=== PATIENT | female | born 1975 | race African-American/Black ===

== ENCOUNTER 2017-09-18 01:38 | Inpatient (IN) | payer MEDICAID, OTHER ==
[2017-09-18] VITALS (44 sets, daily range): BP systolic 114–167; BP diastolic 60–104; PULSE 61–92; RESP 16–20; TEMP 97.7–98.3; O2SAT 93–98
[~2017-09-18] VITALS: Ht 167.6 cm; Wt 96.0 kg
[~2017-09-18 01:38] MED LIST: DIOV160T3 PO; HYDR-3533 PO; KLOR20TA6 PO; NAPR500 PO; TRAZ50TA4 PO
[2017-09-18] MEDS ORDERED: NIFEdipine 10 MG CAP ONE (02:22)
[2017-09-18] MEDS ORDERED: LABETALOL HCL 100 MG/20 ML VIAL ONE (02:36)
[2017-09-18] MEDS ORDERED: LABETALOL HCL 200 MG TAB PO ONE (02:45)
[2017-09-18] MEDS ORDERED: LACTATED RINGER'S 1000 ML INJ 1,000 ML IV SCH (03:05)
[2017-09-18] MEDS ORDERED: CALCIUM GLUCONATE 10% 1 GM/10 ML VIAL IV PUSH PRN (03:15)
[2017-09-18] MEDS ORDERED: SODIUM CHLORIDE 0.9% FLUSH 10 ML FLUSH IV FLUSH PRN ×2 (03:15→07:45)
[2017-09-18 03:26] LABS: HEMATOCRIT 28.5 % (35.0-46.0); HEMOGLOBIN 8.5 GM/DL (11.6-15.3); MEAN CELL VOLUME 59.7 FL (80.0-100.0); MEAN CORPUSCULAR HEMOGLOBIN 17.7 PG (27.0-34.0); MEAN PLATELET VOLUME 8.6 FL (7.0-11.0); PLATELET COUNT 414 TH/MM3 (150-450); RED BLOOD COUNT 4.78 MIL/MM3 (4.00-5.30); WHITE BLOOD COUNT 16.4 TH/MM3 (4.0-11.0)
--- NOTE | 2017-09-18 03:29 | HHI.HP ---
History & Physical H&P HPI HPI Chief Complaint blurry vision. Date Seen: Sep 18, 2017 Time Seen: 03:16 Travel History International Travel<30 Days: No Contact w/Intl Traveler<30Days: No Known Affected Area: No History of Present Illness HPI pt. is a 42 y/o @ 36 1/7 weeks present w/ c/o blurry vision and ? increased bp. pt. states earlier in pm was watching tv and noticed blurry vision. pt. states has increased bp outside of and believed her bp to be increased. when she arrive in l&d, bp noted to be 178 systolic w/ increased diastolic. pt. given 3 doses of 20mg iv labetalol w/ improvement in vision. pt. denies barcenas/cp/sob/n/v/voiding difficulties. Weeks Gestation: 36 Para: 8 : 7 History (Limited) History Past Medical History Narrative Medical pt. w/ h/o htn prior to Obstetric History Obstetric History , s/p x 7, cd x 1 for 2nd twin last . pt w/ h/o twin and delivery x 2 Past Surgical History Narrative Surgical cd x 1 Family History Family History: Negative Social History Alcohol Use: No Tobacco Use: No Substance Abuse: No Allergies-Medications Allergies-Medications (Allergen,Severity, Reaction): Coded Allergies: No Known Allergies (Verified , 12/14/14) Home Meds Active Scripts Hydrocodone/Acetaminophen 5 mg/325 mg (Lortab 5 mg/325 mg) 1 Tab, 1 TAB PO Q4H Y for PAIN, #10 TAB Prov:Gian Shha DO 09/26/14 Naproxen (Naprosyn) 500 Mg Tab, 500 MG PO BID, #20 TAB Prov:Gian Shah DO 09/26/14 Potassium Chloride Microencaps (K-Dur) 20 Meq Tabcr, 20 MEQ PO DAILY for 7 Days , TABCR Prov:Yanira Harmon MD 04/10/13 Reported Medications Valsartan-Hydrochlorothiazide (Diovan Hct 160/12.5) Tab, 1 TAB PO DAILY, TAB 12/14/14 Trazodone Hcl (Trazodone Hcl) 50 Mg Tab, 50 MG PO BID, TAB 09/26/14 ROS Review of Systems Except as stated in HPI: all other systems reviewed are Neg Physical Exam Physical Exam Narrative GENERAL: Well-nourished, well-developed patient. SKIN: Warm and dry. HEAD: Normocephalic and atraumatic. EYES: No scleral icterus. No injection or drainage. ENT: No nasal drainage noted. Mucous membranes pink. Airway patent. NECK: Supple, trachea midline. No JVD. CARDIOVASCULAR: Regular rate and rhythm without murmurs, gallops, or rubs. RESPIRATORY: Breath sounds equal bilaterally. No accessory muscle use. ABDOMEN/GI: Abdomen soft, non-tender, bowel sounds present, no rebound, no guarding Gravid Uterine Contractions: [-] FHT's: Category: 2 Reactive: + Variability: mod EXTREMITIES: No cyanosis or edema. BACK: Nontender without obvious deformity. No CVA tenderness. NEUROLOGICAL: Awake and alert. Motor and sensory grossly within normal limits. Five out of 5 muscle strength in all muscle groups. Normal speech. Data Data Data Orders Orders Nifedipine (Procardia) (09/18/17 02:22) Labetalol (Trandate) (09/18/17 02:45) Labetalol Inj (Trandate Inj) (09/18/17 02:36) Ob (2e) Additional Admit Info (09/18/17 02:40) Admit To Inpatient (09/18/17 ) Code Status (09/18/17 03:05) Vital Signs (Adult) Q5MX4,Q15MX4,Q30MX2,Q1H (09/18/17 03:05) Activity Bed Rest (09/18/17 03:05) Intake + Output Q1H (09/18/17 03:05) Notify DrMaryana Parameters (09/18/17 03:05) Heart CONTINUOUS (09/18/17 03:05) Urinary Catheter Management MOISES.Q8H (09/18/17 03:05) ^ Check Deep Tendon Reflexes Q1H (09/18/17 03:05) Diet Npo (09/18/17 Breakfast) Lactated Ringer's 1000 Ml Inj (Lr 1000 M (09/18/17 03:05) Sodium Chloride 0.9% Flush (Ns Flush) (09/18/17 03:15) Sodium Chloride 0.9% Flush (Ns Flush) (09/18/17 09:00) Calcium Gluconate Inj (Calcium Gluconate (09/18/17 03:15) Cbc No Diff, Includes Plts (09/18/17 03:05) Comprehensive Metabolic Panel (09/18/17 03:05) Uric Acid (09/18/17 03:05) Urinalysis - C+S If Indicated (09/18/17 03:05) Inpatient Certification (09/18/17 ) Specimen To Be Collected PRN (09/18/17 03:05) MDM MDM Medical Record Reviewed: Yes Plan pt. w/ hypertensive emergency. pt. htn improved w/ iv medication. pt. maybe preeclamptic and await lab results. pt. to be admitted. fht guarded and will continue to monitor. Diagnosis Diagnosis: Primary Impression: Hypertensive emergency Additional Impressions: Chronic hypertension during , antepartum 36 weeks gestation of Ariel Saucedo Jr., MD Sep 18, 2017 03:29
[2017-09-18 03:40] LABS: MEAN CORPUSCULAR HGB CONC 29.7 % (32.0-36.0)
[2017-09-18] MEDS ORDERED: ACETAMINOPHEN 1000 MG/100 ML 100 ML IV ONE (03:49)
[2017-09-18] MEDS ORDERED: ceFAZolin INJ 1,000 MG VIAL ONE (03:49)
[2017-09-18] MEDS ORDERED: MORPHINE SULFATE PF 5 MG/10 ML VIAL ONE (03:49)
[2017-09-18 04:20] LABS: ALBUMIN 2.4 GM/DL (3.4-5.0); ALT (GPT) 18 U/L (10-53); AST (GOT) 37 U/L (15-37); BICARBONATE 21.6 MEQ/L (21.0-32.0); BLOOD UREA NITROGEN 10 MG/DL (7-18); CHLORIDE 103 MEQ/L (98-107); CREATININE 0.89 MG/DL (0.50-1.00); GLOMERULAR FILTRATION RATE 85 ML/MIN (>89); GLUCOSE,RANDOM 95 MG/DL (74-106); SODIUM (NA) 137 MEQ/L (136-145)
[2017-09-18 04:24] LABS: ALKALINE PHOSPHATASE 243 U/L (45-117); TOTAL BILIRUBIN ADULT 0.4 MG/DL (0.2-1.0); TOTAL PROTEIN 7.9 GM/DL (6.4-8.2)
[2017-09-18 04:33] LABS: BILIRUBIN, URINE NEG (NEG); BLOOD, URINE TRACE (NEG); GLUCOSE,URINE NEG (NEG); KETONE, URINE NEG (NEG); MUCUS URINE FEW /lpf (OCC); NITRITE,URINE NEG (NEG); SQUAMOUS EPITHELIAL CELL URINE 3 /hpf (0-5); URINE COLOR YELLOW (YELLW/STRAW); URINE LEUKOCYTE ESTERASE SMALL (NEG)
[2017-09-18] MEDS ORDERED: MAGNESIUM SULFATE 40 GM PREMIX 1,000 ML ONE (05:02)
--- NOTE | 2017-09-18 05:05 | PD.OB.DELI ---
Procedure Note Section Procedure Pre Op Diagnosis: (1) Non-reassuring electronic monitoring tracing (2) Hypertensive emergency (3) 36 weeks gestation of (4) Chronic hypertension during , antepartum Post Op Diagnosis: (1) Hypertensive emergency (2) 36 weeks gestation of (3) Chronic hypertension during , antepartum (4) Non-reassuring electronic monitoring tracing Performed by Ariel Saucedo Procedure: Repeat Low Transverse Sec Indication for delivery: Nonreassuring heart tracing Previous condition: None Informed consent obtained: For procedure Confirmed correct: Patient, Time-out taken Anesthesia: Spinal Medication prior to procedure: Other Monitoring during procedure: Blood pressure monitoring, monitoring and evaluation advisor, Pulse oximetry Urinary catheter: Inserted using sterile technique Sterile preparation: With 2% chlorexidine (Hibiclens) Position: Supine with wedge to left side Operative Features Skin Incision: Pfannenstiel Uterine Incision: Low transverse w/knife / blunt ext Membranes Ruptured: Artificially Presentation: Breech Delivery date: Sep 18, 2017 Delivery time: 03:57 Delivery of infant: Uneventful Infant: Male One Minute : 7 Five Minute : 9 Weight: 2430 Status of infant: Viable Placenta delivered: Intact Medications: Antibiotics, Other Estimated blood loss: 700cc Procedure tolerated: Well Maternal Condition: Guarded Condition: Stable Procedure in detail see dictation Ariel Saucedo Jr., MD Sep 18, 2017 05:05
[2017-09-18] MEDS ORDERED: OXYTOCIN 30 UNITS-500ML PREMIX 500 ML ONE (05:59)
--- NOTE | 2017-09-18 06:30 | MB ---
cc: Ariel Bose MD DATE: 09/18/2017 PREOPERATIVE DIAGNOSIS: Intrauterine at 36 weeks, hypertensive emergency, chronic hypertension with superimposed preeclampsia and nonreassuring heart rate tracing. POSTOPERATIVE DIAGNOSIS: Intrauterine at 36 weeks, hypertensive emergency, chronic hypertension with superimposed preeclampsia and nonreassuring heart rate tracing. PROCEDURE: Low transverse delivery via Pfannenstiel skin incision. SURGEON: Ariel Saucedo MD. SCARFER OPERATOR: Staff. ESTIMATED BLOOD LOSS: 700 mL. ANESTHESIA: Spinal anesthesia with Duramorph. URINE OUTPUT: Clear urine throughout the procedure. COMPLICATIONS: None. INDICATIONS: This is a 42-year-old now G7, P9-0-0-9 who presented to the labor and delivery at 36 and 1/7 weeks at [facility]. The patient stated she had blurry vision and upon examination was noted to have hypertensive emergency. The patient was given 3 doses of labetalol and at that time, baby was being monitored. On the monitor strip, the patient was noted to have a category 3 tracing. Decision was made for emergent . FINDINGS: Approximately 38-39 week sized uterus with multiple large leiomyomas. Viable male infant in breech presentation with scores of 7 at 1 minute and 9 at 5 minutes. Weight was 2490 grams. Normal tubes and ovaries bilaterally. Scarring of the bladder to the anterior uterine fundus. PROCEDURE: The patient was taken to the operating room with IV fluids running. She was identified as Fabby [place]. Spinal anesthesia with Duramorph was applied and found to be adequate. She was prepped and draped in the dorsal supine position with a leftward tilt. A Pfannenstiel skin incision was performed carried down to the underlying layer of fascia with the Bovie. The fascia was incised in the midline and extended sharply. Sera clamps were used to the grasp superior aspect of the fascial incision and the underlying rectus muscles were dissected sharply. The parietal peritoneum was identified and entered bluntly. This incision was extended superiorly and inferiorly with good visualization of the bladder. The bladder blade was inserted. Adhesions of the bladder were reduced using the Metzenbaum scissors. The scalpel was used to perform a transverse incision on the uterus and this was extended bluntly. Artificial rupture of membranes was performed. The infant was noted to be in breech presentation. The feet were delivered and the infant was delivered to the shoulders and a Rxgjlpcnu-[id number]-Hzwp maneuver was performed and the infant was delivered without difficulty or trauma. The cord was doubly clamped and cut. Cord bloods were obtained. The placenta was then delivered. The uterus was then exteriorized and cleared of all clots and debris. The uterine incision was closed with #1 Vicryl in a running fashion. A second #1 Vicryl was used to perform an imbricating layer. Several areas of bleeding were noted and these were made hemostatic with multiple [id number]-[id number] sutures. The uterus was then returned to the abdominal cavity and the uterine incision again was found to be hemostatic. There was an attempt to reapproximate the parietal peritoneum, but the peritoneum was noted to be shredding. The rectus muscle on the patient's left side was noted to have a laceration. This was made hemostatic with 0 Vicryl in a [id number] fashion. Multiple veins were noted to be bleeding under the anterior fascia. These were made hemostatic with the Bovie and tqcfcw-[id number] sutures. The subfascial tissues were then noted to be hemostatic. A 0 PDS suture was then used in a running fashion to close the rectus fascia. Subcuticular tissues were noted to be hemostatic. Skin was closed with laurie. Sponge, lap and needle counts were correct x 2. The patient received 2 grams of Ancef prior to the procedure and was transferred to PACU in stable condition. MD NALINI Faust Jr/GERSON , 05:12 AM , 06:29 AM
[2017-09-18] MEDS ORDERED: oxyCODONE/ACETAMINOPHEN 5 MG/325 MG TAB PO PRN (07:45)
[2017-09-18] MEDS ORDERED: LABETALOL HCL 100 MG/20 ML VIAL IV PUSH PRN (07:45)
[2017-09-18] MEDS ORDERED: ONDANSETRON HCL 4 MG/2 ML VIAL IV PUSH PRN (07:45)
[2017-09-18] MEDS ORDERED: KETOROLAC TROMETHAMINE 60 MG/2 ML (IM) VIAL IM PRN (07:45)
[2017-09-18] MEDS ORDERED: OXYTOCIN 30 UNITS-500ML PREMIX 500 ML IV ONE (07:45)
[2017-09-18] MEDS ORDERED: CEFAZOLIN INJ 2,000 MG in SODIUM CHLORIDE 0.9% INJ 100 ML IV SCH (07:45)
[2017-09-18] MEDS: MAGNESIUM SULFATE 40 GM PREMIX 1,000 ML IV SCH (07:55)
[2017-09-18 08:49] LABS: HEMATOCRIT 26.1 % (35.0-46.0); HEMOGLOBIN 7.8 GM/DL (11.6-15.3); MEAN CELL VOLUME 59.8 FL (80.0-100.0); MEAN CORPUSCULAR HEMOGLOBIN 17.9 PG (27.0-34.0); MEAN PLATELET VOLUME 8.4 FL (7.0-11.0); PLATELET COUNT 351 TH/MM3 (150-450); RED BLOOD COUNT 4.37 MIL/MM3 (4.00-5.30); RED CELL DISTRIBUTION WIDTH 20.2 % (11.6-17.2); WHITE BLOOD COUNT 19.4 TH/MM3 (4.0-11.0)
[2017-09-18 08:52] LABS: MEAN CORPUSCULAR HGB CONC 29.9 % (32.0-36.0)
[2017-09-18] MEDS: SODIUM CHLORIDE 0.9% FLUSH 10 ML FLUSH IV FLUSH SCH (09:00)
[2017-09-18] MEDS ORDERED: SODIUM CHLORIDE 0.9% FLUSH 10 ML FLUSH IV FLUSH SCH (09:00)
[2017-09-18 09:12] LABS: ALT (GPT) 16 U/L (10-53); AST (GOT) 33 U/L (15-37); BICARBONATE 20.6 MEQ/L (21.0-32.0); BLOOD UREA NITROGEN 11 MG/DL (7-18); CALCIUM 8.3 MG/DL (8.5-10.1); CHLORIDE 106 MEQ/L (98-107); CREATININE 0.87 MG/DL (0.50-1.00); GLOMERULAR FILTRATION RATE 87 ML/MIN (>89); GLUCOSE,RANDOM 107 MG/DL (74-106); SODIUM (NA) 137 MEQ/L (136-145)
[2017-09-18 09:15] LABS: ALKALINE PHOSPHATASE 201 U/L (45-117); TOTAL BILIRUBIN ADULT 0.3 MG/DL (0.2-1.0); TOTAL PROTEIN 6.7 GM/DL (6.4-8.2)
--- NOTE | 2017-09-18 11:09 | HHI.OB ---
Subjective Post Operative Day: 0 Remarks Postoperative day # 0 s/p emergency CS due to indication, complicated by severe PreE (superimposed on chronic HTN). AF overnight. BPs still elevated to 160s/90s-100s post-operatively but pt is asymptomatic. Incision not draining. Lochia stable. Denies dysuria. No breast tenderness. She is feeding the baby via breast. Appetite good. No nausea or vomiting. With Dale, continuing on Magnesium until early intervention school psychologist tomorrow. Denies calf pain or shortness of breath. Otherwise, she is doing well this morning and has no other concerns. Objective Vitals/I&O Vital Signs Date Time Temp Pulse Resp B/P (MAP) Pulse Ox O2 Delivery O2 Flow Rate FiO2 09/18/17 10:00 67 146/89 (108) 09/18/17 08:50 67 147/87 (107) 09/18/17 08:41 68 144/87 (106) 09/18/17 08:31 70 156/96 (116) 09/18/17 08:00 75 18 161/93 (115) 09/18/17 08:00 97.8 09/18/17 07:00 97.8 09/18/17 07:00 18 09/18/17 06:45 75 147/94 (111) 09/18/17 06:00 74 16 152/89 (110) 09/18/17 05:45 153/89 (110) 09/18/17 05:45 16 09/18/17 05:45 71 94 09/18/17 05:39 73 143/82 (102) 09/18/17 05:39 95 09/18/17 05:31 97.7 09/18/17 05:15 73 18 147/80 (102) 09/18/17 05:15 94 09/18/17 05:05 74 18 125/74 (91) 09/18/17 05:00 71 114/60 (78) 09/18/17 05:00 97.7 16 95 09/18/17 03:45 18 09/18/17 03:40 61 09/18/17 03:30 87 09/18/17 03:30 18 09/18/17 03:30 85 09/18/17 03:30 85 165/101 (122) 93 09/18/17 03:25 87 94 09/18/17 03:25 87 09/18/17 03:23 88 167/104 (125) 09/18/17 03:20 88 96 09/18/17 03:20 89 09/18/17 03:15 89 96 09/18/17 03:15 18 09/18/17 03:15 89 09/18/17 03:10 87 09/18/17 03:10 89 09/18/17 03:10 88 165/102 (123) 96 09/18/17 03:05 91 09/18/17 03:05 89 96 09/18/17 03:00 92 09/18/17 03:00 92 95 09/18/17 03:00 18 09/18/17 02:55 95 09/18/17 02:50 98 09/18/17 02:45 97 09/18/17 02:40 98 09/18/17 02:15 18 Result Diagram: 09/18/17 0809/18/17828 Objective Remarks GENERAL: Well-nourished, well-developed patient. CARDIOVASCULAR: Regular rate and rhythm without murmurs, gallops, or rubs. RESPIRATORY: Breath sounds equal bilaterally. No accessory muscle use. ABDOMEN/GI: Abdomen soft, non-tender, bowel sounds present. Incision: Clean, dry and intact. Fundus: Firm, non-tender at umbilicus. GENITOURINARY: Light to moderate bleeding. Dale in place draining clear yellow fluid. EXTREMITIES: No cyanosis or edema, non-tender, without signs of DVT. Medications and IVs Current Medications Medications (Trade) Dose Ordered Sig/Bria Route Start Time Stop Time Status Last Admin (NS Flush) 2 ml UNSCH PRN IV FLUSH 09/18/17 03:15 (NS Flush) 2 ml BID IV FLUSH 09/18/17 09:00 (Calcium Gluconate Inj) 1 gm UNSCH PRN IV PUSH 09/18/17 03:15 Magnesium Sulfate 1,000 ml @ 50 mls/hr Q20H IV 09/18/17 07:35 09/18/17 07:55 Lactated Ringer's 1,000 ml @ 100 mls/hr Q10H IV 09/18/17 12:35 09/19/17 08:34 Oxytocin 500 ml @ 100 mls/hr ONCE ONCE IV 09/18/17 07:45 4/18/18 12:44 09/18/17 07:55 Oxytocin 500 ml @ 100 mls/hr UNSCH X1 PRN IV 09/18/17 12:45 09/19/17 12:44 (Motrin) 600 mg Q6H PRN PO 09/18/17 07:45 (Toradol Inj) 60 mg UNSCH X1 PRN IM 09/18/17 07:45 09/19/17 07:44 (Percocet 5-325 Mg) 1 tab Q4H PRN PO 09/18/17 07:45 (Percocet 5-325 Mg) 2 tab Q4H PRN PO 09/18/17 07:45 (M-M-R Ii Inj) 0.5 ml ONCE ONCE SQ 09/19/17 16:00 09/19/17 16:01 (Boostrix Inj) 0.5 ml ONCE ONCE IM 09/19/17 16:00 09/19/17 16:01 (Zofran Inj) 4 mg Q6H PRN IV PUSH 09/18/17 07:45 Cefazolin Sodium/ Dextrose 50 ml @ 100 mls/hr Q8H IV 09/18/17 12:00 09/18/17 20:29 Assessment/Plan Assessment and Plan 42 y/o female who is POD# 1 s/p primary CS due to severe PreE and indication. Post-operative Care: -Continue routine care. -Percocet and Motrin PRN pain. -Encouraged OOB. Advised pelvic rest for 6 wks. Will need a f/u appt. in 1 wk for incision check and BP check. -Re: ctrl, she would like tubal ligation. -Anticipate discharge 2-3 days. - PIH: FOLLOW UP WITHIN ONE WEEK POST-DISCHARGE HTN in : -BP still elevated post-operatively -Asymptomatic -Continue magnesium 2mg/hr IV drip for 24 hr post- -Was not adherent to medications before or during -Requiring PRN labetalol today 20mg IV this morning, continue to give labetalol PRN today -Consider transition to HCTZ and losartan or other regimen tomorrow -Continue clear liquids DW Dr. Saucedo Discharge Planning 2-3 days to home Ruth Ann Bray MD R2 Sep 18, 2017 11:09
[2017-09-18] MEDS ORDERED: OXYTOCIN 10 UNIT/ML AMP IV ONE (12:00)
[2017-09-18] MEDS ORDERED: LACTATED RINGER'S 1000 ML INJ 1,000 ML IV ONE (12:00)
[2017-09-18] MEDS ORDERED: DEXAMETHASONE SOD PHOS 4 MG/ML VIAL IV ONE (12:00)
[2017-09-18] MEDS ORDERED: ONDANSETRON HCL 4 MG/2 ML VIAL IV ONE (12:00)
[2017-09-18] MEDS: ceFAZolin 2 GM/DEX PREMIX 50 ML IV SCH ×2 (12:00→20:00)
[2017-09-18] MEDS ORDERED: ceFAZolin INJ 1,000 MG VIAL IV ONE (12:00)
[2017-09-18] MEDS ORDERED: EPINEPHrine HCL (1:1000) 1 MG/ML VIAL IV ONE (12:00)
[2017-09-18] MEDS: LACTATED RINGER'S 1000 ML INJ 1,000 ML IV SCH ×2 (12:35→22:35)
[2017-09-18] MEDS ORDERED: OXYTOCIN 30 UNITS-500ML PREMIX 500 ML IV PRN (12:45)
[2017-09-19] VITALS (13 sets, daily range): BP systolic 135–165; BP diastolic 70–94; PULSE 79–98; RESP 17–20; TEMP 97.7–98.2; O2SAT 98–99
[2017-09-19] MEDS: SODIUM CHLORIDE 0.9% FLUSH 10 ML FLUSH IV FLUSH SCH (01:10)
[2017-09-19] MEDS: MAGNESIUM SULFATE 40 GM PREMIX 1,000 ML IV SCH (03:35)
[2017-09-19 05:55] LABS: AUTOMATED NEUTROPHIL # 23.7 TH/MM3 (1.8-7.7); BASOPHIL # 0.1 TH/MM3 (0-0.2); BASOPHIL % 0.2 % (0.0-2.0); EOSINOPHIL % 0.1 % (0.0-4.0); LYMPH % 9.3 % (9.0-44.0); LYMPHOCYTE # 2.5 TH/MM3 (1.0-4.8); MEAN CORPUSCULAR HEMOGLOBIN 17.9 PG (27.0-34.0); MEAN PLATELET VOLUME 8.7 FL (7.0-11.0); MONO % 3.7 % (0.0-8.0); NEUT % 86.7 % (16.0-70.0); PLATELET COUNT 371 TH/MM3 (150-450); RED BLOOD COUNT 3.83 MIL/MM3 (4.00-5.30); RED CELL DISTRIBUTION WIDTH 19.8 % (11.6-17.2); WHITE BLOOD COUNT 27.3 TH/MM3 (4.0-11.0)
[2017-09-19] MEDS: oxyCODONE/ACETAMINOPHEN 5 MG/325 MG TAB PO PRN ×2 (06:00→20:42)
[2017-09-19] MEDS: IBUPROFEN 600 MG TAB PO PRN ×2 (06:00→20:43)
[2017-09-19 06:01] LABS: MEAN CORPUSCULAR HGB CONC 29.8 % (32.0-36.0)
[2017-09-19 06:02] LABS: HEMOGLOBIN 6.9 GM/DL (11.6-15.3)
[2017-09-19 06:24] LABS: ALBUMIN 1.8 GM/DL (3.4-5.0); BICARBONATE 21.7 MEQ/L (21.0-32.0); CALCIUM 6.8 MG/DL (8.5-10.1); CREATININE 0.98 MG/DL (0.50-1.00); TOTAL BILIRUBIN ADULT 0.4 MG/DL (0.2-1.0); TOTAL PROTEIN 6.4 GM/DL (6.4-8.2)
[2017-09-19 06:31] LABS: CALCIUM-PROTEIN CORRECTED 7.2 MG/DL (8.5-10.1)
[2017-09-19 06:45] LABS: BANDS 1 % (0-6); CORRECTED NUCLEATED RBC 3 /100 WBC (0-0); LYMPHOCYTES 10 % (9-44); MONOCYTES 2 % (0-8); NUCLEATED RED BLOOD CELL 3 (0-0); POLYS (SEG NEUTROPHILS) 87 % (16-70)
--- NOTE | 2017-09-19 08:02 | HHI.OB ---
Subjective Post Operative Day: 1 Remarks Patient postop day 1 for nonreassuring FHR & severe hypertension afebrile ,BPs--150-160/80s other VSS feels good having some pain, Mag So4 stopped and pt going to MB floor Objective Vitals/I&O Vital Signs Date Time Temp Pulse Resp B/P (MAP) Pulse Ox O2 Delivery O2 Flow Rate FiO2 09/19/17 07:51 17 09/19/17 04:00 85 158/87 (110) 09/19/17 03:58 98.0 09/19/17 03:00 81 137/77 (97) 09/19/17 02:00 84 154/81 (105) 09/19/17 01:05 92 152/81 (104) 09/19/17 01:00 86 161/80 (107) 09/19/17 00:00 18 09/19/17 00:00 83 135/71 (92) 09/19/17 00:00 98.0 09/18/17 23:00 82 140/81 (100) 09/18/17 22:00 84 140/81 (100) 09/18/17 21:01 82 139/75 (96) 09/18/17 20:01 83 153/81 (105) 09/18/17 20:00 98.1 18 09/18/17 19:01 78 142/76 (98) 09/18/17 18:56 81 157/85 (109) 09/18/17 18:00 83 156/89 (111) 09/18/17 17:00 78 155/91 (112) 09/18/17 16:00 158/85 (109) 09/18/17 16:00 98.3 20 09/18/17 16:00 80 158/95 (116) 09/18/17 15:00 83 158/96 (116) 09/18/17 14:00 75 138/79 (98) 09/18/17 13:00 76 137/96 (110) 09/18/17 12:00 98.0 20 09/18/17 12:00 67 149/88 (108) 09/18/17 11:00 65 143/97 (112) 09/18/17 10:00 67 146/89 (108) 09/18/17 08:50 67 147/87 (107) 09/18/17 08:41 68 144/87 (106) 09/18/17 08:31 70 156/96 (116) 09/18/17 08:00 75 18 161/93 (115) 09/18/17 08:00 97.8 Result Diagram: 09/19/1752009/19/17520 Objective Remarks GENERAL: Well-nourished, well-developed patient. CARDIOVASCULAR: Regular rate and rhythm without murmurs, gallops, or rubs. RESPIRATORY: Breath sounds equal bilaterally. No accessory muscle use. 2+ distention ABDOMEN/GI: Abdomen soft, non-tender, bowel sounds present. Incision: Clean, dry and intact. Fundus: Firm, non-tender at umbilicus. GENITOURINARY: Light to moderate bleeding. Dale in place draining clear yellow fluid. EXTREMITIES: No cyanosis or edema, non-tender, without signs of DVT. Medications and IVs Current Medications Medications (Trade) Dose Ordered Sig/Bria Route Start Time Stop Time Status Last Admin (NS Flush) 2 ml UNSCH PRN IV FLUSH 09/18/17 03:15 (NS Flush) 2 ml BID IV FLUSH 09/18/17 09:00 (Calcium Gluconate Inj) 1 gm UNSCH PRN IV PUSH 09/18/17 03:15 Magnesium Sulfate 1,000 ml @ 50 mls/hr Q20H IV 09/18/17 07:35 09/19/17 03:35 Lactated Ringer's 1,000 ml @ 100 mls/hr Q10H IV 09/18/17 12:35 09/19/17 08:34 09/18/17 22:35 Oxytocin 500 ml @ 100 mls/hr UNSCH X1 PRN IV 09/18/17 12:45 09/19/17 12:44 (Motrin) 600 mg Q6H PRN PO 09/18/17 07:45 09/19/17 06:00 (Percocet 5-325 Mg) 1 tab Q4H PRN PO 09/18/17 07:45 09/19/17 06:00 (Percocet 5-325 Mg) 2 tab Q4H PRN PO 09/18/17 07:45 (M-M-R Ii Inj) 0.5 ml ONCE ONCE SQ 09/19/17 16:00 09/19/17 16:01 (Boostrix Inj) 0.5 ml ONCE ONCE IM 09/19/17 16:00 09/19/17 16:01 (Zofran Inj) 4 mg Q6H PRN IV PUSH 09/18/17 07:45 Assessment/Plan Assessment and Plan 42 y/o female who is POD# 1 s/p primary CS due to severe PreE and indication. Post-operative Care: -Continue routine care. -Percocet and Motrin PRN pain. -Encouraged OOB. Advised pelvic rest for 6 wks. Will need a f/u appt. in 1 wk for incision check and BP check. -Re: ctrl, she would like tubal ligation. -Anticipate discharge 2-3 days. - PIH: FOLLOW UP WITHIN ONE WEEK POST-DISCHARGE HTN in : -BP still elevated post-operatively -Asymptomatic -Was not adherent to medications before or during - Plan advance post op care diet and ambulation Begin po tenoretic 50 mg q d WBC -27 k will recheck in am H/H -. observe may need blood , will begin po Fe on D/C Discharge Planning 2-3 days to home Christian Yi II, MD Sep 19, 2017 08:02
[2017-09-19] MEDS: ATENOLOL/CHLORTHALIDONE 50/25 TAB PO SCH (09:10)
[2017-09-19] MEDS ORDERED: DIPHTH/TETANUS/ACEL PERTUSSIS (BOOSTER) 0.5 ML VIAL/PFS IM ONE (16:00)
[2017-09-19] MEDS ORDERED: MEASLES, MUMPS, RUBELLA VACCINE 0.5 ML VIAL SQ ONE (16:00)
[2017-09-19] MEDS ORDERED: DOCUSATE SODIUM 50 MG/SENNA 8.6 MG TAB PO PRN (20:45)
[2017-09-19] MEDS ORDERED: SIMETHICONE 80 MG CHEWABLE TAB PO PRN (20:45)
[2017-09-20] VITALS (27 sets, daily range): BP systolic 124–205; BP diastolic 77–111; PULSE 81–113; RESP 18–20; TEMP 97.3–98.3; O2SAT 95–99
[2017-09-20] MEDS ORDERED: LABETALOL HCL 100 MG/20 ML VIAL ONE (00:58)
[2017-09-20] MEDS ORDERED: LABETALOL HCL 100 MG/20 ML VIAL IV ONE (01:15)
[2017-09-20] MEDS: IBUPROFEN 600 MG TAB PO PRN ×2 (05:11→13:18)
[2017-09-20] MEDS: oxyCODONE/ACETAMINOPHEN 5 MG/325 MG TAB PO PRN ×3 (05:11→19:01)
[2017-09-20 06:04] LABS: AUTOMATED NEUTROPHIL # 28.7 TH/MM3 (1.8-7.7); BASOPHIL # 0.1 TH/MM3 (0-0.2); BASOPHIL % 0.2 % (0.0-2.0); EOSINOPHIL # 0.1 TH/MM3 (0-0.4); EOSINOPHIL % 0.2 % (0.0-4.0); HEMATOCRIT 23.6 % (35.0-46.0); LYMPH % 11.5 % (9.0-44.0); LYMPHOCYTE # 3.9 TH/MM3 (1.0-4.8); MEAN CELL VOLUME 59.6 FL (80.0-100.0); MEAN CORPUSCULAR HEMOGLOBIN 17.5 PG (27.0-34.0); MONOCYTE # 1.4 TH/MM3 (0-0.9); NEUT % 84.1 % (16.0-70.0); PLATELET COUNT 446 TH/MM3 (150-450); RED BLOOD COUNT 3.96 MIL/MM3 (4.00-5.30); RED CELL DISTRIBUTION WIDTH 20.1 % (11.6-17.2); WHITE BLOOD COUNT 34.2 TH/MM3 (4.0-11.0)
[2017-09-20 06:13] LABS: MEAN CORPUSCULAR HGB CONC 29.4 % (32.0-36.0)
[2017-09-20 06:15] LABS: HEMOGLOBIN 6.9 GM/DL (11.6-15.3)
[2017-09-20 07:53] LABS: BANDS 1 % (0-6); CORRECTED NUCLEATED RBC 1 /100 WBC (0-0); LYMPHOCYTES 8 % (9-44); MONOCYTES 4 % (0-8); NEUTROPHIL # MANUAL DIFF 30.1 TH/MM3 (1.8-7.7); NUCLEATED RED BLOOD CELL 1 (0-0); POLYS (SEG NEUTROPHILS) 87 % (16-70)
[2017-09-20 07:55] LABS: OVALOCYTES 1+ (NORMAL)
--- NOTE | 2017-09-20 08:07 | HHI.OB ---
Subjective Post Operative Day: 2 Remarks Patient was seen and examined this morning. She denies fevers, chills, nausea, vomiting, dysuria, abdominal pain, diarrhea, constipation, dizziness, shortness of breath. she has ambulated without difficulty. she notes she has been eating and drinking without difficulty. She is eager to go home stating she has 11 kids to care for. Minimal incisional pain. Objective Vitals/I&O Vital Signs Date Time Temp Pulse Resp B/P (MAP) Pulse Ox O2 Delivery O2 Flow Rate FiO2 09/20/17 05:45 113 20 169/96 (120) 09/20/17 02:00 93 156/97 (116) 97 09/20/17 01:46 96 09/20/17 01:46 99 18 09/20/17 01:45 157/87 (110) 09/20/17 01:38 98 140/96 (111) 96 09/20/17 01:30 98 09/20/17 01:30 98 160/97 (118) 09/20/17 01:19 18 09/20/17 01:19 95 09/20/17 01:18 18 96 09/20/17 01:18 101 161/89 (113) 09/20/17 01:10 100 09/20/17 01:10 178/107 (130) 09/20/17 00:35 201/91 (127) 09/20/17 00:30 98.2 97 09/20/17 00:30 101 18 205/99 (134) 09/19/17 20:00 98.2 98 20 159/86 (110) 98 09/19/17 13:00 97.7 79 20 140/70 (93) 99 09/19/17 10:45 79 135/82 (99) 09/19/17 09:00 98.0 96 20 165/94 (117) 98 Result Diagram: 09/20/17 0511 09/19/17 0521 Objective Remarks GENERAL: Well-nourished, well-developed patient. CARDIOVASCULAR: Regular rate and rhythm without murmurs, gallops, or rubs. RESPIRATORY: Breath sounds equal bilaterally. No accessory muscle use. 2+ distention ABDOMEN/GI: Abdomen soft, non-tender, bowel sounds present. Incision: Clean, dry and intact. Clear dressing with intact incision underneath. Fundus: Firm, non-tender at umbilicus. GENITOURINARY: Light to moderate bleeding. EXTREMITIES: No cyanosis or edema, non-tender, without signs of DVT. Medications and IVs Current Medications Medications (Trade) Dose Ordered Sig/Bria Route Start Time Stop Time Status Last Admin (NS Flush) 2 ml UNSCH PRN IV FLUSH 09/18/17 03:15 (NS Flush) 2 ml BID IV FLUSH 09/18/17 09:00 09/19/17 01:10 (Calcium Gluconate Inj) 1 gm UNSCH PRN IV PUSH 09/18/17 03:15 Magnesium Sulfate 1,000 ml @ 50 mls/hr Q20H IV 09/18/17 07:35 09/19/17 03:35 (Motrin) 600 mg Q6H PRN PO 09/18/17 07:45 09/20/17 05:11 (Percocet 5-325 Mg) 1 tab Q4H PRN PO 09/18/17 07:45 09/20/17 05:11 (Percocet 5-325 Mg) 2 tab Q4H PRN PO 09/18/17 07:45 (Zofran Inj) 4 mg Q6H PRN IV PUSH 09/18/17 07:45 (Tenoretic 50-25 Mg) 1 tab DAILY PO 09/19/17 09:00 09/19/17 09:10 (Mylicon Chew) 80 mg QID PRN PO 09/19/17 20:45 09/19/17 23:22 (Margarita-Colace) 2 tab Q12H PRN PO 09/19/17 20:45 09/19/17 23:22 Assessment/Plan Assessment and Plan 42 y/o female who is POD# 2 s/p primary CS due to severe PreE and indication. Post-Operative Care: -Continue routine care. -Percocet and Motrin PRN pain. -Encouraged OOB. Advised pelvic rest for 6 wks. Will need a f/u appt. in 1 wk for incision check and BP check. -Re: ctrl, she would like tubal ligation. -Post- anemia: H/H 6.9/23, pt asymptomatic and decline blood products, will start iron supplementation ferrous sulfate 325mg BID for titration as outpatient. -Stool softeners while on iron -Anticipate discharge 1-2 days. -PIH: FOLLOW UP WITHIN ONE WEEK POST-DISCHARGE HTN in : -BP still elevated post-operatively -documented highest BP in 24 hr is 201/91 -Asymptomatic -Was not adherent to medications before or during -Atenolol/chlorthalidone 50/25 mg x 1 on 09/19. -Labetalol 20mg IV on 09/19 evening, 40mg IV on 09/20 AM, BP responded well both times -Will initiate Labetalol 400mg PO BID evening on 09/20 Leukocytosis: -WBC 34K and uptrending. Pt afebrile and asymptomatic. -Ambulating well, low suspicion for respiratory source -UA wnl on admission -Repeat CBC and UA this morning, order incentive spirometry DW Dr. Saucedo Discharge Planning 2-3 days to home Ruth Ann Bray MD R2 Sep 20, 2017 08:07
[2017-09-20] MEDS ORDERED: LABETALOL HCL 100 MG/20 ML VIAL IV PUSH ONE ×2 (08:30→14:15)
[2017-09-20] MEDS: ATENOLOL/CHLORTHALIDONE 50/25 TAB PO SCH (08:46)
[2017-09-20 11:33] LABS: BACTERIA, URINE FEW /hpf; BILIRUBIN, URINE NEG (NEG); BLOOD, URINE LARGE (NEG); GLUCOSE,URINE NEG (NEG); KETONE, URINE NEG (NEG); MUCUS URINE MOD /lpf (OCC); NITRITE,URINE NEG (NEG); SQUAMOUS EPITHELIAL CELL URINE 11 /hpf (0-5); TRANSITIONAL EPI CELLS, URINE 8 /hpf; URINE LEUKOCYTE ESTERASE SMALL (NEG)
[2017-09-20 11:34] LABS: URINE COLOR LIGHT-RED (YELLW/STRAW)
[2017-09-20 12:29] LABS: AUTOMATED NEUTROPHIL # 22.6 TH/MM3 (1.8-7.7); BASOPHIL # 0.1 TH/MM3 (0-0.2); BASOPHIL % 0.2 % (0.0-2.0); EOSINOPHIL % 0.1 % (0.0-4.0); LYMPH % 10.8 % (9.0-44.0); LYMPHOCYTE # 2.9 TH/MM3 (1.0-4.8); MEAN CELL VOLUME 60.1 FL (80.0-100.0); MEAN CORPUSCULAR HEMOGLOBIN 18.3 PG (27.0-34.0); MEAN CORPUSCULAR HGB CONC 30.5 % (32.0-36.0); MEAN PLATELET VOLUME 8.4 FL (7.0-11.0); MONOCYTE # 1.1 TH/MM3 (0-0.9); NEUT % 84.9 % (16.0-70.0); PLATELET COUNT 378 TH/MM3 (150-450); RED BLOOD COUNT 3.34 MIL/MM3 (4.00-5.30); RED CELL DISTRIBUTION WIDTH 20.2 % (11.6-17.2); WHITE BLOOD COUNT 26.6 TH/MM3 (4.0-11.0)
[2017-09-20 12:35] LABS: HEMOGLOBIN 6.1 GM/DL (11.6-15.3)
[2017-09-20 12:36] LABS: HEMATOCRIT 20.1 % (35.0-46.0)
[2017-09-20] MEDS ORDERED: NALOXONE HCL 0.4 MG/ML AMP IV PUSH PRN (12:45)
[2017-09-20] MEDS ORDERED: MAGNESIUM HYDROXIDE SUSP 30 ML CUP PO PRN (12:45)
[2017-09-20] MEDS ORDERED: SENNOSIDES 8.6 MG TAB PO PRN (12:45)
[2017-09-20] MEDS ORDERED: LACTULOSE SYRUP 20 GM/30 ML CUP PO PRN (12:45)
[2017-09-20] MEDS ORDERED: BISACODYL 10 MG SUPP RECTAL PRN (12:45)
[2017-09-20] MEDS: FERROUS SULFATE 325 MG (65 MG ELEMENTAL IRON) TAB PO SCH ×2 (13:18→18:18)
[2017-09-20] MEDS ORDERED: NIFEdipine 10 MG CAP ONE (13:31)
[2017-09-20] MEDS ORDERED: NIFEdipine 20 MG CAP PO ONE (14:00)
[2017-09-20] MEDS: LABETALOL HCL 200 MG TAB PO SCH (19:54)
[2017-09-20] MEDS ORDERED: LABETALOL HCL 200 MG TAB PO SCH (21:00)
[2017-09-20] MEDS: DOCUSATE SODIUM 50 MG/SENNA 8.6 MG TAB PO SCH (21:06)
[2017-09-21] MEDS: oxyCODONE/ACETAMINOPHEN 5 MG/325 MG TAB PO PRN (01:53)
[2017-09-21] MEDS: IBUPROFEN 600 MG TAB PO PRN (01:53)
[2017-09-21 02:32] VITALS: BP 158/84; PULSE 92; RESP 18; TEMP 98.3; O2SAT 96
[2017-09-21 04:59] VITALS: BP 157/88; PULSE 91; RESP 18; TEMP 98.4; O2SAT 98
[2017-09-21 06:22] VITALS: BP 159/95; PULSE 91; RESP 18; TEMP 98.7; O2SAT 98
--- NOTE | 2017-09-21 07:30 | HHI.DCPOC ---
Discharge Care Plan Diagnosis: (1) Status post section (2) Chronic hypertension during , antepartum Report Symptoms to Your Doctor -Temperature above 100.5 degrees -Redness, of incision or excessive or foul smelling drainage -Unusual pain or calf pain -Increased vaginal bleeding -Painful or difficulty urinating -Feelings of extreme sadness or anxiety after 2 weeks Goals to Promote Your Health * To prevent worsening of your condition and complications * To maintain your health at the optimal level Directions to Meet Your Goals Take your medications as prescribed Follow your dietary instruction Follow activity as directed Ensure plenty of rest for recovery Drink fluids for hydration Keep your appointments as scheduled Take your immunizations and boosters as scheduled If your symptoms worsen call your PCP, if no PCP go to Urgent Care Center or Emergency Room Smoking is Dangerous to Your Health. Avoid second hand smoke Call the 24-hour crisis hotline for domestic abuse at Ruth Ann Bray MD R2 Sep 21, 2017 07:30
[2017-09-21 08:03] VITALS: BP 167/91; PULSE 91; RESP 16; TEMP 98.2; O2SAT 98
[2017-09-21] MEDS: LABETALOL HCL 200 MG TAB PO SCH (08:05)
[2017-09-21] MEDS: FERROUS SULFATE 325 MG (65 MG ELEMENTAL IRON) TAB PO SCH (08:05)
[2017-09-21] MEDS: DOCUSATE SODIUM 50 MG/SENNA 8.6 MG TAB PO SCH (08:05)
--- NOTE | 2017-09-21 08:40 | HHI.OB ---
Subjective Post Operative Day: 3 Remarks Patient was seen and examined this morning. She denies fevers, chills, headaches , nausea, vomiting, dysuria, abdominal pain, diarrhea, constipation, dizziness, shortness of breath. She has ambulated without difficulty. Normal urination and bowel movement. She notes she has been eating and drinking without difficulty. No incisional pain. Objective Vitals/I&O Vital Signs Date Time Temp Pulse Resp B/P (MAP) Pulse Ox O2 Delivery O2 Flow Rate FiO2 09/21/17 08:03 98.2 91 16 167/91 (116) 98 09/21/17 06:22 98.7 91 18 159/95 (116) 98 09/21/17 04:59 98.4 91 18 157/88 (111) 98 09/21/17 02:32 98.3 92 18 158/84 (108) 96 09/20/17 23:42 98.3 09/20/17 23:42 85 18 155/83 (107) 98 09/20/17 22:00 82 18 137/78 (97) 98 09/20/17 20:00 97.3 102 18 151/83 (105) 99 09/20/17 17:00 98 20 151/81 (104) 96 09/20/17 14:31 81 124/77 (93) 09/20/17 14:20 175/95 (121) 09/20/17 13:50 175/95 (121) 09/20/17 13:00 98 20 179/100 (126) 09/20/17 12:00 96 20 166/95 (118) 09/20/17 08:52 87 09/20/17 08:51 152/89 (110) 09/20/17 08:34 91 97 09/20/17 08:34 149/87 (107) Result Diagram: 09/20/17 1207 09/19/17 0521 Objective Remarks GENERAL: Well-nourished, well-developed patient. CARDIOVASCULAR: Regular rate and rhythm without murmurs, gallops, or rubs. RESPIRATORY: Breath sounds equal bilaterally. No accessory muscle use. 2+ distention ABDOMEN/GI: Abdomen soft, non-tender, bowel sounds present. Incision: Clean, dry and intact. Clear dressing with intact incision underneath. Fundus: Firm, non-tender at umbilicus. GENITOURINARY: Light to moderate bleeding. EXTREMITIES: No cyanosis or edema, non-tender, without signs of DVT. Medications and IVs Current Medications Medications (Trade) Dose Ordered Sig/Bria Route Start Time Stop Time Status Last Admin (NS Flush) 2 ml UNSCH PRN IV FLUSH 09/18/17 03:15 (NS Flush) 2 ml BID IV FLUSH 09/18/17 09:00 09/19/17 01:10 (Motrin) 600 mg Q6H PRN PO 09/18/17 07:45 09/21/17 01:53 (Percocet 5-325 Mg) 1 tab Q4H PRN PO 09/18/17 07:45 09/21/17 01:53 (Percocet 5-325 Mg) 2 tab Q4H PRN PO 09/18/17 07:45 (Zofran Inj) 4 mg Q6H PRN IV PUSH 09/18/17 07:45 (Mylicon Chew) 80 mg QID PRN PO 09/19/17 20:45 09/19/17 23:22 (Ferrous Sulfate) 325 mg TID PO 09/20/17 13:00 09/21/17 08:05 (Narcan Inj) 0.4 mg UNSCH PRN IV PUSH 09/20/17 12:45 (Margarita-Colace) 1 tab BID PO 09/20/17 21:00 09/21/17 08:05 (Milk Of Magnesia Liq) 30 ml Q12H PRN PO 09/20/17 12:45 (Senokot) 17.2 mg Q12H PRN PO 09/20/17 12:45 (Dulcolax Supp) 10 mg DAILY PRN RECTAL 09/20/17 12:45 (Lactulose Liq) 30 ml DAILY PRN PO 09/20/17 12:45 (Trandate) 400 mg Q12H PO 09/20/17 20:00 09/21/17 08:05 Assessment/Plan Assessment and Plan 42 y/o female who is POD# 2 s/p primary CS due to severe PreE and indication. Post-Operative Care: -Continue routine care. -Percocet and Motrin PRN pain. -Encouraged OOB. Advised pelvic rest for 6 wks. Will need a f/u appt. in 1 wk for incision check and BP check. -Re: ctrl, she would like tubal ligation. -Post- anemia: H/H 6.06/25 on 09/20, pt asymptomatic and declines blood products, will start iron supplementation ferrous sulfate 325mg tid for titration as outpatient. -Stool softeners while on iron -Anticipate discharge today -PIH: FOLLOW UP WITHIN ONE WEEK POST-DISCHARGE HTN in : -BP 150s/90s overnight. -Continue Labetalol 400mg BID on discharge -Asymptomatic -Was not adherent to medications before or during -Atenolol/chlorthalidone 50/25 mg x 1 on 09/19. -Labetalol 20mg IV on 09/19 evening, 40mg IV on 09/20 AM, Procardia 20mg PO x 1 PM, Labetolol 20mg IV x 1 09/20 PM. BP responded well Leukocytosis: -WBC downtrending. Recheck CBC this morning. -Ambulating well, low suspicion for respiratory source -UA wn -Incentive spirometry at bedside DW Dr. Fernandez Discharge Planning 2-3 days to home Ruth Ann Bray MD R2 Sep 21, 2017 08:40
[2017-09-21] MEDS ORDERED: PERI PO (08:43)
[2017-09-21] MEDS ORDERED: FERR325T20 PO (08:43)
[2017-09-21] MEDS ORDERED: OXYC1TAB63 PO (08:43)
[2017-09-21] MEDS ORDERED: LABE200T2 PO (08:43)
[2017-09-21 09:23] LABS: BASOPHIL # 0.1 TH/MM3 (0-0.2); BASOPHIL % 0.4 % (0.0-2.0); EOSINOPHIL # 0.1 TH/MM3 (0-0.4); EOSINOPHIL % 0.3 % (0.0-4.0); LYMPHOCYTE # 2.6 TH/MM3 (1.0-4.8); MEAN CELL VOLUME 60.2 FL (80.0-100.0); MEAN CORPUSCULAR HEMOGLOBIN 18.1 PG (27.0-34.0); MEAN CORPUSCULAR HGB CONC 30.1 % (32.0-36.0); MEAN PLATELET VOLUME 8.5 FL (7.0-11.0); MONO % 3.3 % (0.0-8.0); MONOCYTE # 0.7 TH/MM3 (0-0.9); PLATELET COUNT 388 TH/MM3 (150-450); RED BLOOD COUNT 3.29 MIL/MM3 (4.00-5.30); RED CELL DISTRIBUTION WIDTH 19.9 % (11.6-17.2); WHITE BLOOD COUNT 21.5 TH/MM3 (4.0-11.0)
[2017-09-21 09:29] LABS: HEMATOCRIT 19.8 % (35.0-46.0)
[2017-09-21 09:55] VITALS: BP 135/71; PULSE 83; RESP 16; TEMP 98
[2017-09-21 09:56] VITALS: O2SAT 98
== END 2017-09-21 12:46 | disposition home or self-care (01) | DRG 765 ==
LOC: HOBED 01:38 → EDBD 01:38 → H2EA 02:40 → H1EA 09-19 07:57
PROVIDERS: ADMIT Obstetrics & Gynecology; ATTEND Obstetrics & Gynecology
PROC: 10D00Z1 Extraction of Products of Conception, Low, Open Approach (ICD-10-PCS; principal; 2017-09-18)
DX: O11.4 Pre-existing hypertension with pre-eclampsia, complicating childbirth (principal); O99.12 Other diseases of the blood and blood-forming organs and certain disorders involving the immune mechanism complicating childbirth; I16.1 Hypertensive emergency; Z3A.36 36 weeks gestation of pregnancy; O34.211 Maternal care for low transverse scar from previous cesarean delivery; O90.81 Anemia of the puerperium; H53.8 Other visual disturbances; D72.829 Elevated white blood cell count, unspecified; O32.1XX0 Maternal care for breech presentation, not applicable or unspecified; O76 Abnormality in fetal heart rate and rhythm complicating labor and delivery; Z37.0 Single live birth
CPT/HCPCS: 51702; 59025; 80053; 80307; 81001; 84550; 85007; 85025; 85027; 86850; 86900; 86901; 87086; 88307; 94150; 96360; G0481; J0131; J0171; J0690; J1100; J2274; J2405; J2590; J3475; J7120